=== PATIENT | male | born 1980 | race Two or more races ===

== ENCOUNTER 2019-01-30 19:34 | Emergency (ER) | payer SELFPAY ==
[~2019-01-30] VITALS: Ht 167.6 cm; Wt 75.0 kg
[2019-01-30] MEDS ORDERED: SODIUM CHLORIDE 0.9% 1,000 ML IV ONE (20:14)
[2019-01-30] MEDS ORDERED: LORAZEPAM 2MG/ML CPJ IV ONE (20:15)
[2019-01-30 20:45] LABS: CLARITY URINE CLEAR (CLEAR); COLOR URINE YELLOW (YELLOW); KETONES URINE TRACE (NEGATIVE); LEUKOCYTE ESTERASE URINE NEGATIVE (NEGATIVE); NITRITE URINE NEGATIVE (NEGATIVE); OCCULT BLOOD URINE TRACE (NEGATIVE); PH URINE 5.5 (4.5-8.0); PROTEIN URINE 1+ (NEGATIVE); SPECIFIC GRAVITY URINE 1.018 (1.005-1.030); UROBILINOGEN URINE 0.2 E.U./dL (0.2-1.0)
[2019-01-30 20:57] LABS: *AMPHETAMINES SCREEN URINE NEGATIVE (NEGATIVE); *BARBITURATES SCREEN URINE NEGATIVE (NEGATIVE); *BENZODIAZEPINES SCREEN URINE NEGATIVE (NEGATIVE); *COCAINE SCREEN URINE NEGATIVE (NEGATIVE)
[2019-01-30 20:59] LABS: CANNABINOID URINE SCREEN NEGATIVE (NEGATIVE); METHADONE URINE SCREEN NEGATIVE (NEGATIVE); OPIATES URINE SCREEN NEGATIVE (NEGATIVE); PHENCYCLIDINE URINE SCREEN NEGATIVE (NEGATIVE)
[2019-01-30] MEDS ORDERED: LEVETIRACETAM 500MG PREMIX 100 ML IV ONE (22:00)
[2019-01-30 22:42] LABS: HEMATOCRIT. 38.5 % (42.0-52.0); HEMOGLOBIN. 13.3 g/dL (14.0-18.0); MEAN CORPUSCULAR HEMOGLOBIN 32.4 pg (28.0-32.0); MEAN CORPUSCULAR VOLUME 94.1 fL (80.0-94.0); MEAN PLATELET VOLUME 8.4 fl (7.4-10.4); PLATELET 125 x1000/uL (130-400); RED CELL DISTRIBUTION WIDTH 12.8 % (11.6-14.6)
[2019-01-30 22:48] LABS: CHLORIDE 103 mEq/L (98-107)
[2019-01-30 22:53] LABS: ETHANOL BLOOD < 10 mg/dL
[2019-01-30 22:57] LABS: CREATINE KINASE 427 IU/L (39-308)
[2019-01-30 22:58] LABS: CARBAMAZEPINE < 0.5 ug/mL (4-12)
[2019-01-30 23:01] LABS: PHENOBARBITAL < 2.1 ug/mL (15.0-40.0); VALPROIC ACID < 3.0 ug/mL (50-100)
[2019-01-30 23:04] LABS: PLATELET ESTIMATE DECREASED
[2019-01-30 23:45] VITALS: BP 113/71
== END 2019-01-30 23:52 | disposition home or self-care (01) ==
LOC: ER 20:00
DX: S00.532A Contusion of oral cavity, initial encounter (principal); R56.9 Unspecified convulsions; E86.0 Dehydration; R40.20 Unspecified coma; X58.XXXA Exposure to other specified factors, initial encounter; Y93.89 Activity, other specified; Y92.89 Other specified places as the place of occurrence of the external cause; Y99.8 Other external cause status
CPT/HCPCS: 36415; 70450; 71045; 80053; 80156; 80165; 80184; 80185; 80305; 80320; 81003; 82550; 82962; 84443; 84484; 85025; 93005; 96361; 96374; 96375; 99284; J1953; J2060; J7030; G0480